=== PATIENT | female | born 1950 | race African-American/Black ===

== ENCOUNTER → 2016-04-20 | Outpatient (CLI) | payer MEDICARE, OTHER ==
[2014-11-22 06:04] VITALS: BP 124/67
[~2016-04-20] MED LIST: ACET500T33 PO; AMLO5TAB2 PO; AMLO5TAB4 PO; ASPI81TA44 PO; CELE100C PO; FERR-26 PO; HYDR-2666 PO; OXYC-323 PO; Oxycodone Hcl/Acetaminophen PO; PRAV40TA2 PO; PROM25TA10 PO; TRIA1CAP3 PO; WARF1TAB PO; Warfarin Sodium MC
--- NOTE | 2016-04-21 14:53 | RAD ---
EXAM: DIGITAL SCREEN BILAT W/CAD HISTORY: Routine Screening. COMPARISON: 08/23/2014 Standard mammographic views are obtained of the bilateral breasts. This study was interpreted with the benefit of Computerized Aided Detection (CAD). FINDINGS: The breast parenchyma is primarily fatty replaced. Breast parenchyma level density 1.. There is no definite new suspicious spiculated mass or worrisome new cluster of microcalcifications. Repeat demonstration of a well-circumscribed nodule in the right upper outer breast. Most likely cause is a lymph node or cyst. IMPRESSION: No definite new suspicious mass. BI-RADS CATEGORY: 2 BENIGN FINDING RECOMMENDED FOLLOW-UP: 12M 12 MONTH FOLLOW-UP PQRS compliance statement: Patient information was entered into a reminder system with a target due date for the next mammogram. Mammography is a sensitive method for finding small breast cancers, but it does not detect them all and is not a substitute for careful clinical examination. A negative mammogram does not negate a clinically suspicious finding and should not result in delay in biopsying a clinically suspicious abnormality. "Our facility is accredited by the [employer] Mammography Program."
== END | disposition home or self-care (01) ==
LOC: MAMMO 10:59
PROVIDERS: ATTEND Family Medicine
DX: Z12.31 Encounter for screening mammogram for malignant neoplasm of breast (principal)
CPT/HCPCS: G0202; 77067

== ENCOUNTER 2017-04-07 14:34 | Emergency (ER) | payer MEDICARE, OTHER ==
[2017-04-07 16:10] LABS: ADD MAN DIFF? NO
[2017-04-07 16:17] LABS: BASO # 0.1 x10^3/uL (0.0-0.2); BASO % 1 % (0-3); EOS # 0.2 x10^3/uL (0.0-0.7); EOS % 2 % (0-3); HEMATOCRIT 41.9 % (36.0-47.0); HEMOGLOBIN 13.8 g/dL (12.0-15.5); LYMPH # 2.5 x10^3/uL (1.0-4.8); LYMPH % 29 % (24-48); MEAN CORPUSCULAR HEMOGLOBIN 28 pg (25-35); MEAN CORPUSCULAR HGB CONC 33 g/dL (31-37); MEAN CORPUSCULAR VOLUME 84 fL (79-100); MONO # 0.9 x10^3/uL (0.0-1.1); MONO % 10 % (0-9); NEUT % 58 % (31-73); PLATELET COUNT 343 x10^3/uL (140-400); RED BLOOD COUNT 4.97 x10^6/uL (3.50-5.40); RED CELL DISTRIBUTION WIDTH 13.8 % (11.5-14.5); WHITE BLOOD COUNT 8.7 x10^3/uL (4.0-11.0)
[2017-04-07] MEDS: IPRATRPIUM/ALBUTEROL 0.5/2.5MG 3 ML NEBU. NEB ×2 (16:22)
[2017-04-07 16:25] LABS: ANION GAP 9 (6-14); BLOOD UREA NITROGEN 18 mg/dL (7-20); CALCIUM 9.5 mg/dL (8.5-10.1); CARBON DIOXIDE 27 mmol/L (21-32); CHLORIDE 103 mmol/L (98-107); CREATININE 1.1 mg/dL (0.6-1.0); GFR 60.5; GLUCOSE 120 mg/dL (70-99); POTASSIUM 3.6 mmol/L (3.5-5.1); SODIUM 139 mmol/L (136-145)
[2017-04-07] MEDS: methylPREDNISolone SOD SUCC PF 125 MG/2 ML VIAL. IV ×2 (16:33)
[2017-04-07 16:35] LABS: TROPONINI < 0.017 ng/mL (0.000-0.055)
[2017-04-07 16:38] LABS: NT-PRO BNP 39 pg/mL (0-124)
[2017-04-07] MEDS: IOHEXOL 300 MG/ML 100ML VIAL. IV ×2 (16:42)
[2017-04-07] MEDS ORDERED: CONTRAST GIVEN MC ×2 (16:45)
[2017-04-07 16:51] LABS: D-DIMER 0.94 ug/mlFEU (0.00-0.50)
[2017-04-07 16:53] LABS: INFLUENZA A PATIENT NEGATIVE (NEGATIVE); INFLUENZA B PATIENT NEGATIVE (NEGATIVE); OBC FLU VALID
[2017-04-07] MEDS: MORPHINE SULFATE 4 MG/ML DISP.SYRIN. IV ×2 (17:20)
== END 2017-04-07 18:45 | disposition home or self-care (01) ==
LOC: ER 14:34
DX: J45.901 Unspecified asthma with (acute) exacerbation (principal); R07.89 Other chest pain; E78.00 Pure hypercholesterolemia, unspecified; I10 Essential (primary) hypertension
CPT/HCPCS: 36415; 71275; 80048; 83880; 84484; 85025; 85379; 87804; 87804-59; 93005; 94640; 96374; 96375; 99285-25; J2270; J2930; J7620; Q9967

== ENCOUNTER → 2017-05-11 | Day surgery (SDC) | payer MEDICARE, OTHER ==
[~2017-05-11] MED LIST changes: -ACET500T33 PO; -AMLO5TAB2 PO; -AMLO5TAB4 PO; -ASPI81TA44 PO; -CELE100C PO; -FERR-26 PO; -HYDR-2666 PO; +LIDOCAINE 2% PF Vial for OR 5 ML VIAL.; -OXYC-323 PO; -Oxycodone Hcl/Acetaminophen PO; -PRAV40TA2 PO; -PROM25TA10 PO; +PROPOFOL 40 ML IV; -TRIA1CAP3 PO; -WARF1TAB PO; -Warfarin Sodium MC
[2017-05-11] MEDS: IV RINGERS,LACTATED 1000ML 1,000 ML IV (07:22)
== END | disposition home or self-care (01) ==
LOC: ENDOS 06:47
DX: Z12.11 Encounter for screening for malignant neoplasm of colon (principal); K57.30 Diverticulosis of large intestine without perforation or abscess without bleeding; I10 Essential (primary) hypertension; K21.9 Gastro-esophageal reflux disease without esophagitis; E78.5 Hyperlipidemia, unspecified; J45.909 Unspecified asthma, uncomplicated; M19.90 Unspecified osteoarthritis, unspecified site; Z96.659 Presence of unspecified artificial knee joint
CPT/HCPCS: G0121; J2704

== ENCOUNTER 2018-05-23 18:27 | Inpatient (IN) | payer OTHER ==
[~2018-05-23] VITALS: Ht 152.4 cm; Wt 101.7 kg
[~2018-05-23 18:27] MED LIST changes: +ACET500T33 PO; +ALBU2.5V8 INH; +AMLO5TAB10 PO; +AMLO5TAB4 PO; +ASPI81TA59 PO; +CELE100C PO; +FERR325T14 PO; +HYDR-2761 PO; +HYDR-3164 PO; -LIDOCAINE 2% PF Vial for OR 5 ML VIAL.; +OXYC1TAB15 PO; +Oxycodone Hcl/Acetaminophen PO; +PRAV40TA2 PO; +PROM25TA10 PO; -PROPOFOL 40 ML IV; +TRIA1CAP3 PO; +WARF1TAB74 PO; +Warfarin Sodium MC
[2018-05-23] MEDS ORDERED: DEXAMETHASONE SOD PHOS 20 MG/5 ML VIAL. IV ONE (18:45)
[2018-05-23] MEDS ORDERED: ONDANSETRON PF 4 MG/2 ML VIAL. IV ONE (18:45)
[2018-05-23] MEDS ORDERED: ALBUTEROL SULFATE 2.5 MG/3 ML NEBU. NEB ONE (18:45)
[2018-05-23 19:25] LABS: BASO # 0.1 x10^3/uL (0.0-0.2); BASO % 1 % (0-3); EOS # 0.1 x10^3/uL (0.0-0.7); EOS % 1 % (0-3); HEMATOCRIT 42.9 % (36.0-47.0); HEMOGLOBIN 14.2 g/dL (12.0-15.5); LYMPH % 19 % (24-48); MEAN CORPUSCULAR HEMOGLOBIN 28 pg (25-35); MEAN CORPUSCULAR HGB CONC 33 g/dL (31-37); MEAN CORPUSCULAR VOLUME 84 fL (79-100); MONO # 0.5 x10^3/uL (0.0-1.1); MONO % 5 % (0-9); NEUT # 7.7 x10^3uL (1.8-7.7); NEUT % 75 % (31-73); PLATELET COUNT 317 x10^3/uL (140-400); RED BLOOD COUNT 5.13 x10^6/uL (3.50-5.40); RED CELL DISTRIBUTION WIDTH 13.5 % (11.5-14.5); WHITE BLOOD COUNT 10.3 x10^3/uL (4.0-11.0)
[2018-05-23] MEDS ORDERED: IV NORMAL SALINE 1000ML BAG 1,000 ML IV ONE (19:30)
[2018-05-23] MEDS ORDERED: MORPHINE SULFATE 4 MG/ML VIAL. IV ONE (19:30)
[2018-05-23] MEDS ORDERED: ACETAMINOPHEN 500 MG TABLET PO ONE (19:30)
[2018-05-23 19:32] LABS: CALCIUM 9.2 mg/dL (8.5-10.1); CREATININE 1.1 mg/dL (0.6-1.0); GFR 60.3; POTASSIUM 3.7 mmol/L (3.5-5.1)
[2018-05-23 19:39] LABS: ALBUMIN 3.5 g/dL (3.4-5.0); ALBUMIN/GLOBULIN RATIO 0.6 (1.0-1.7); TOTAL BILIRUBIN 0.6 mg/dL (0.2-1.0)
[2018-05-23 20:25] LABS: INFLUENZA A PATIENT NEGATIVE (NEGATIVE); INFLUENZA B PATIENT NEGATIVE (NEGATIVE)
--- NOTE | 2018-05-23 21:12 | PHYS DOC ---
Past Medical History Past Medical History: Asthma, High Cholesterol, Hypertension (EMMANUEL SOARES APRN) Past Surgical History: Knee Replacement Additional Past Surgical Histo: bilat knee, L carpal tunnel (EMMANUEL SOARES APRN) Alcohol Use: None Drug Use: None (EMMANUEL SOARES APRN) Adult General Chief Complaint Chief Complaint: SHORTNESS OF BREATH HPI HPI Patient is a 67 year old AA female who presents to the emergency Department today via EMS with complaints of shortness of breath since last . Patient reports having a history of asthma. At this time she complains of chest discomfort described as tightness, she denies palpiations. EMS gave patient a breathing treatment in route to the emergency department that did help improve her breathing somewhat per patient. Patient reports a fever, fatigue, increased shortness of breath with exertion, and nonproductive cough that has gradually gotten worse over the last 4 days. She currently rates the pain a 10 out of 10 on the pain scale, she reports that using her inhaler at home and taking the nebulizer treatment from EMS provided little to no relief of her symptoms. (EMMANUEL SOARES APRN) Review of Systems Review of Systems Constitutional: Reports fever and chills Eyes: Denies changes HENT: Denies nasal congestion or sore throat [] Respiratory: See history of present illness Cardiovascular: No additional information not addressed in HPI [] GI: Denies abdominal pain, nausea, vomiting, or diarrhea [] Musculoskeletal: Reports body aches Integument: Denies rash or skin lesions [] Neurologic: Denies headache Complete systems were reviewed and found to be within normal limits, except as documented in this note. (EMMANUEL SOARES APRN) Current Medications Current Medications Current Medications Medications (Trade) Dose Ordered Sig/[place] Start Time Stop Time Status Last Admin Dose Admin Acetaminophen (Tylenol) 1,000 mg 1X ONCE 05/23/18 19:30 05/23/18 19:32 DC 05/23/18 19:39 1,000 MG Albuterol Sulfate (Ventolin Neb Soln) 2.5 mg 1X ONCE 05/23/18 18:45 05/23/18 18:46 DC 05/23/18 19:14 2.5 MG Dexamethasone Sodium Phosphate (Decadron) 10 mg 1X ONCE 05/23/18 18:45 05/23/18 18:46 DC 05/23/18 19:32 10 MG Morphine Sulfate (Morphine Sulfate) 4 mg 1X ONCE 05/23/18 19:30 05/23/18 19:32 DC 05/23/18 19:43 4 MG Ondansetron HCl (Zofran) 4 mg 1X ONCE 05/23/18 18:45 05/23/18 18:46 DC 05/23/18 19:32 4 MG Sodium Chloride 1,000 ml @ 1,000 mls/hr 1X ONCE 05/23/18 19:30 05/23/18 20:29 DC 05/23/18 19:45 1,000 MLS/HR (CHERYL PATRICK MD) Allergies Allergies Allergies Coded Allergies Type Severity Reaction Last Updated Verified No Known Drug Allergies 05/11/17 No (CHERYL PATRICK MD) Physical Exam Physical Exam Constitutional: Well developed, well nourished, no acute distress, ill appearance. [] HENT: Normocephalic, atraumatic, bilateral external ears normal, oropharynx moist, nose normal. [] Eyes: conjunctiva normal, no discharge. [] Neck: Normal range of motion, no stridor. [] Cardiovascular:Heart rate regular rhythm, no murmur [] Lungs & Thorax: Bilateral breath sounds coarse throughout, with inspiratory and expiratory wheezes, diminshed in bases bilat, crackles noted in RLL, speaking 4-5 words at a time, mild retractions, moderate respiratory distress Abdomen: soft, no tenderness, Skin: Warm, dry, no erythema, no rash. [] Extremities: No cyanosis, no clubbing, ROM intact, no edema. [] Neurologic: Alert and oriented X 3, no focal deficits noted. [] Psychologic: Affect normal, judgement normal, mood normal. [] (EMMANUEL SOARES APRN) Current Patient Data Vital Signs Vital Signs Date Time Temp Pulse Resp B/P (MAP) Pulse Ox O2 Delivery O2 Flow Rate FiO2 05/23/18 20:00 100 18 186/96 (126) 97 Nasal Cannula 2.0 05/23/18 18:49 101.9 101.9 (CHERYL PATRICK MD) Lab Values Laboratory Tests Test 05/23/18 19:13 05/23/18 19:40 05/23/18 19:53 White Blood Count 10.3 x10^3/uL (4.0-11.0) Red Blood Count 5.13 x10^6/uL (3.50-5.40) Hemoglobin 14.2 g/dL (12.0-15.5) Hematocrit 42.9 % (36.0-47.0) Mean Corpuscular Volume 84 fL (79-100) Mean Corpuscular Hemoglobin 28 pg (25-35) Mean Corpuscular Hemoglobin Concent 33 g/dL (31-37) Red Cell Distribution Width 13.5 % (11.5-14.5) Platelet Count 317 x10^3/uL (140-400) Neutrophils (%) (Auto) 75 % (31-73) H Lymphocytes (%) (Auto) 19 % (24-48) L Monocytes (%) (Auto) 5 % (0-9) Eosinophils (%) (Auto) 1 % (0-3) Basophils (%) (Auto) 1 % (0-3) Neutrophils # (Auto) 7.7 x10^3uL (1.8-7.7) Lymphocytes # (Auto) 2.0 x10^3/uL (1.0-4.8) Monocytes # (Auto) 0.5 x10^3/uL (0.0-1.1) Eosinophils # (Auto) 0.1 x10^3/uL (0.0-0.7) Basophils # (Auto) 0.1 x10^3/uL (0.0-0.2) Sodium Level 137 mmol/L (136-145) Potassium Level 3.7 mmol/L (3.5-5.1) Chloride Level 101 mmol/L (98-107) Carbon Dioxide Level 26 mmol/L (21-32) Anion Gap 10 (6-14) Blood Urea Nitrogen 11 mg/dL (7-20) Creatinine 1.1 mg/dL (0.6-1.0) H Estimated GFR (Cockcroft-Gault) 60.3 BUN/Creatinine Ratio 10 (6-20) Glucose Level 115 mg/dL (70-99) H Calcium Level 9.2 mg/dL (8.5-10.1) Total Bilirubin 0.6 mg/dL (0.2-1.0) Aspartate Amino Transferase (AST) 18 U/L (15-37) Alanine Aminotransferase (ALT) 23 U/L (14-59) Alkaline Phosphatase 113 U/L (46-116) DM-Trz-S-Type Natriuretic Peptide 70 pg/mL (0-124) Total Protein 9.0 g/dL (6.4-8.2) H Albumin 3.5 g/dL (3.4-5.0) Albumin/Globulin Ratio 0.6 (1.0-1.7) L Lactic Acid Level 1.3 mmol/L (0.4-2.0) Influenza Type A Antigen Negative (NEGATIVE) Influenza Type B Antigen Negative (NEGATIVE) Laboratory Tests 05/23/18 19:13 Laboratory Tests 05/23/18 19:13 Microbiology 05/23/18 Blood Culture - Final, Complete NO GROWTH AFTER 5 DAYS (CHERYL PATRICK MD) EKG EKG 1857- sinus tachycardia, no STEMI, read by Dr. Cantu. [] (EMMANUEL SOARES APRN) Radiology/Procedures Radiology/Procedures RLL infiltrate read by Dr. Patrick[] (EMMANUEL SOARES APRN) Course & Med Decision Making Course & Med Decision Making Pertinent Labs and Imaging studies reviewed. (See chart for details) Dx: RLL CAP CXR revealed RLL pneumonia. EKG sinus tachycardia. VSS, Pt was given 1L NS, 1 gm of tylenol, 10 mg of decadron IV, 8 mg of zofran, 8 mg of morphine, and an albuterol neb tx in the ER. She reported feeling better after interventions. Influenza testing was negative. CBC unremarkable, lactic acid 1.3, blood cx pending [address] Gross who will admit patient for RLL community acquired pneumonia. 500 mg of zithromax IV and 1 gm of rocephin IV ordered, per Dr. Gross. (EMMANUEL SOARES APRN) Course & Med Decision Making Staff Physician Addendum: I was working in the ER during the course of this patient's visit. I was available for consultation as needed, but I was not directly involved in the care of this patient. (CHERYL PATRICK MD) Dragon Disclaimer Dragon Disclaimer This electronic medical record was generated, in whole or in part, using a voice recognition dictation system. (EMMANUEL SOARES APRN) Departure Departure Impression: Primary Impression: CAP (community acquired pneumonia) Disposition: ADMITTED INPATIENT Admitting Physician: Bertha Gross (EMMANUEL SOARES APRN) Condition: STABLE Referrals: LIZETT CRUZ (PCP) Scripts Prednisone (PREDNISONE) 50 Mg Tablet 50 MG PO DAILY for lung for 3 Days, #3 TAB Prov: BERTHA GROSS MD 05/25/18 Azithromycin (ZITHROMAX) 250 Mg Tablet 250 MG PO DAILY for ANTI-BIOTIC for 3 Days, #3 TAB 0 Refills Prov: BETRHA GROSS MD 05/25/18 Problem Qualifiers Primary Impression: CAP (community acquired pneumonia) Laterality: right Lung location: lower lobe of lung Qualified Codes: J18.1 - Lobar pneumonia, unspecified organism EMMANUEL SOARES APRN May 23, 2018 21:11 CHERYL PATRICK MD May 29, 2018 06:00
[2018-05-23] MEDS ORDERED: cefTRIAXone IV Push 1 GM VIAL. IVP ONE (21:30)
[2018-05-23] MEDS ORDERED: AZITHRMYCN 500MG IVPB FOR OMNI 250 ML IV ONE (21:30)
[2018-05-23 23:00] VITALS: BP 150/98
--- NOTE | 2018-05-23 23:00 | NUR ---
ADMISSION NOTE: Patient arrived to room 588 via wheelchair. Patient able to transfer self to bed without any visible difficulty. Patient complains of hunger at this time. Box lunch provided. Bed low, locked, call light within reach. Will complete admission questionnaire.
--- NOTE | 2018-05-24 01:49 | EKG ---
[facility] [address] [place] [address] Test Date: 2018-05-23 Test Time: 18:57:15 Pat Name: ISABEL DE LOS SANTOS Department: Room: 588 1 Gender: F Vaccine Manager: : 1950 Requested By: EMMANUEL SOARES Order Number: [id number] Reading MD: Morro Pimentel MD Measurements Intervals Phyllis Rate: 109 P: 34 TX: 132 QRS: -3 QRSD: 86 T: 71 QT: 318 QTc: 429 Interpretive Statements SINUS TACHYCARDIA LEFTWARD AXIS LVH Electronically Signed On 05-27-2018 16:02:30 CDT by Morro Pimentel MD
[2018-05-24 03:00] VITALS: BP 140/86
--- NOTE | 2018-05-24 06:45 | NUR ---
Patient complaining of headache and requesting her blood pressure medication. Dr. Grey paged at approximately 0615. No return call received at this time. Informed patient of this and passed along to day RN.
[2018-05-24 07:00] VITALS: BP 151/87
[2018-05-24] MEDS ORDERED: ACETAMINOPHEN 325 MG TABLET. PO PRN (07:30)
--- NOTE | 2018-05-24 07:42 | RAD ---
CHEST PA LATERAL CLINICAL INDICATION: congestion COMPARISON: None FINDINGS: Heart is normal in size. Bilateral interstitial opacities are seen especially in the lower lung zones. No focal consolidation. No pneumothorax or pleural effusion. Visualized bony thorax is within normal limits. Focal eventration of right hemidiaphragm. IMPRESSION: Findings suggests atypical/viral infection. Electronically signed by: Rex Mckeon DO (05/24/2018 7:39 AM) [facility]
[2018-05-24] MEDS ORDERED: ALBUTEROL SULFATE 2.5 MG/3 ML NEBU. INH PRN (07:45)
[2018-05-24] MEDS ORDERED: HYDROcodone/APAP 5/325MG 1 TAB TABLET PO PRN (07:45)
[2018-05-24] MEDS: amLODIPine BESYLATE 5 MG TABLET PO SCH (07:59)
[2018-05-24] MEDS: FERROUS SULFATE 325 MG TABLET. PO SCH ×3 (07:59→17:53)
--- NOTE | 2018-05-24 10:28 | PDOC ---
Provider Note Provider Note Pt seen.H&P dictated.#[id number] BERNARD GROSS MD May 24, 2018 10:28
--- NOTE | 2018-05-24 10:40 | HP ---
ADMIT DATE: 05/23/2018 LOCATION: 8. REASON FOR ADMISSION TO THE HOSPITAL: Community-acquired pneumonia. HISTORY OF PRESENT ILLNESS: The patient is a 68-year-old female with history of asthma, hypertension, and hyperlipidemia. She was having cough with shortness of breath for last 4 days, it got to a point where she came to the Emergency Room, she was wheezing, was given breathing treatment, IV Solu-Medrol. Chest x-ray shows some faint infiltrates and the patient had influenza test, it was negative, was admitted to the hospital for possible viral pneumonitis versus atypical pneumonia. PAST MEDICAL HISTORY: History of asthma, hypertension, hyperlipidemia. PAST SURGICAL HISTORY: Knee replacement, carpal tunnel. ALLERGIES: No known drug allergies. MEDICATIONS AT HOME: Albuterol inhaler, amlodipine 5 mg daily, iron 3 times a day, hydrocodone for pain 5/325 q.6, pravastatin 40 mg daily. PERSONAL HISTORY: Denies smoking, alcohol, drug abuse. FAMILY HISTORY: Positive for hypertension. REVIEW OF SYMPTOMS: CONSTITUTIONAL: Denies any fever or body ache. Complains of cough and wheezing with some shortness of breath. GASTROINTESTINAL: No nausea or vomiting. Rest of the 14 systems was reviewed and negative. PHYSICAL EXAMINATION: GENERAL: The patient is comfortable now. VITAL SIGNS: She had a temperature 101.9, pulse 110, respirations 24, blood pressure 170/106, 93 on room air. HEENT: Head is atraumatic. Eyes: Pupils are equal. Oral cavity, slight congestion. NECK: Supple. Thyroid not enlarged. JVD not elevated. CHEST: Symmetrical. CARDIOVASCULAR: S1, S2. LUNGS: Clear to auscultation, occasional wheezing. ABDOMEN: Soft, bowel sounds present, no mass palpable. EXTERNAL GENITALIA: No Vincent. RECTAL: Deferred. EXTREMITIES: No calf tenderness, no edema. NEUROLOGIC: Moving all extremities. No focal deficits noted. LABORATORY DATA: Shows a white count of 10, hemoglobin 14, platelets 317. Electrolytes, sodium 137, potassium 3.7, chloride 101, bicarbonate 26, creatinine 1.1, glucose 115. Lactic acid 1.3. LFTs were normal. Influenza A and B was negative. Chest x-ray, some faint infiltrates. EKG done, report is pending. FINAL IMPRESSION: 1. Community-acquired pneumonia. 2. Atypical pneumonia versus viral pneumonitis. 3. Hypertension. 4. History of asthma. PLAN: At this time, was to admit to hospital. Start on Rocephin and Zithromax, IV Solu-Medrol, oxygen, breathing treatments and see how she improves in the next 24-48 hours. BERNARD GROSS MD DR: HERNANDEZ/sterling JOB#: [id number] / [id number] LIZETT Parsons
[2018-05-24 10:43] VITALS: BP 151/45
[2018-05-24] MEDS ORDERED: IPRATRPIUM/ALBUTEROL 0.5/2.5MG 3 ML NEBU. NEB ONE (11:00)
--- NOTE | 2018-05-24 12:00 | NUR ---
SW following for discharge planning. Disucssed with RN, pt is from home. RN advised no SW needs at this time.
[2018-05-24] MEDS: predniSONE 20 MG TABLET PO SCH (12:34)
[2018-05-24 14:59] LABS: MYCOPLASMA PATIENT NEGATIVE (NEGATIVE)
[2018-05-24 15:00] VITALS: BP 194/94
[2018-05-24] MEDS: IPRATRPIUM/ALBUTEROL 0.5/2.5MG 3 ML NEBU. NEB SCH ×2 (16:43→20:00)
[2018-05-24 19:00] VITALS: BP 141/73
[2018-05-24] MEDS: LACTOBACILLUS RHAMNOSUS GG 1 CAPSULE. PO SCH (20:30)
[2018-05-24] MEDS ORDERED: ATORVASTATIN CALCIUM 10 MG TABLET. PO SCH (21:00)
[2018-05-24] MEDS ORDERED: AZITHROMYCIN 500 MG in IV NORMAL SALINE 250ML 250 ML IV SCH (21:00)
[2018-05-24] MEDS ORDERED: cefTRIAXone IV Push 1 GM VIAL. IVP SCH (21:00)
[2018-05-24 23:00] VITALS: BP 151/86
[2018-05-25 03:00] VITALS: BP 158/87
[2018-05-25 04:27] LABS: BASO # 0.1 x10^3/uL (0.0-0.2); BASO % 0 % (0-3); EOS % 0 % (0-3); HEMATOCRIT 40.2 % (36.0-47.0); HEMOGLOBIN 13.2 g/dL (12.0-15.5); LYMPH # 1.9 x10^3/uL (1.0-4.8); LYMPH % 14 % (24-48); MEAN CORPUSCULAR HEMOGLOBIN 28 pg (25-35); MEAN CORPUSCULAR HGB CONC 33 g/dL (31-37); MEAN CORPUSCULAR VOLUME 85 fL (79-100); MONO # 0.6 x10^3/uL (0.0-1.1); MONO % 5 % (0-9); NEUT # 11.6 x10^3uL (1.8-7.7); NEUT % 82 % (31-73); PLATELET COUNT 305 x10^3/uL (140-400); RED BLOOD COUNT 4.76 x10^6/uL (3.50-5.40); RED CELL DISTRIBUTION WIDTH 13.6 % (11.5-14.5); WHITE BLOOD COUNT 14.3 x10^3/uL (4.0-11.0)
[2018-05-25 04:44] LABS: CALCIUM 8.7 mg/dL (8.5-10.1); CREATININE 0.9 mg/dL (0.6-1.0); GFR 75.8; POTASSIUM 4.2 mmol/L (3.5-5.1)
[2018-05-25 07:00] VITALS: BP 126/72
[2018-05-25] MEDS: IPRATRPIUM/ALBUTEROL 0.5/2.5MG 3 ML NEBU. NEB SCH ×2 (07:39→11:18)
--- NOTE | 2018-05-25 08:21 | RAD ---
CHEST PA LATERAL CLINICAL INDICATION: PNEUMONIA F/U COMPARISON: 05/23/2018 FINDINGS: Heart is normal in size. Lungs are clear. No pneumothorax or pleural effusion. Visualized bony thorax is within normal limits. IMPRESSION: No acute pulmonary process. Electronically signed by: Rex Mckeon DO (05/25/2018 8:16 AM) [facility]
[2018-05-25] MEDS: FERROUS SULFATE 325 MG TABLET. PO SCH (09:27)
[2018-05-25] MEDS: LACTOBACILLUS RHAMNOSUS GG 1 CAPSULE. PO SCH (09:27)
[2018-05-25] MEDS: predniSONE 20 MG TABLET PO SCH (09:30)
[2018-05-25] MEDS: amLODIPine BESYLATE 5 MG TABLET PO SCH (09:30)
--- NOTE | 2018-05-25 09:44 | PDOC ---
PROGRESS NOTES Subjective Subjective feels better today ,want to go home Objective Objective Vital Signs Date Time Temp Pulse Resp B/P (MAP) Pulse Ox O2 Delivery O2 Flow Rate FiO2 05/25/18 09:30 73 126/72 05/25/18 08:18 Room Air 05/25/18 07:39 97 05/25/18 07:00 98.7 18 98.7 05/24/18 15:00 2.0 Intake and Output 05/25/18 07:00 Intake Total 420 ml Balance 420 ml Intake Oral 420 ml # Voids 4 Physical Exam Abdomen: Normal bowel sounds, Soft Heart: Regular rate, Normal S1 Extremities: No clubbing General: Alert, Oriented X3 HEENT: Atraumatic Lungs: Clear to auscultation MUSCULOSKELETAL: No deformity Neck: No JVD Neuro: Normal speech Psych/Mental Status: Mental status NL Skin: No breakdown Diagnosis Problem List Problems Medical Problems: (1) CAP (community acquired pneumonia) Status: Acute Assessment Assessment Problems Medical Problems: (1) CAP (community acquired pneumonia) Status: Acute FINAL IMPRESSION: 1. Community-acquired pneumonia.?Viral pneumonitis 2. Atypical pneumonia versus viral pneumonitis. 3. Hypertension. 4. History of asthma. PLAN: clinically improved cxr clear wbc 14 due to steroids c/s neg,flue test -ve mycoplasme and legionella neg. d/c home on prednisone+zithromax. f/u pcp in 1 week. Plan Plan of Care Problems Medical Problems: (1) CAP (community acquired pneumonia) Status: Acute Comment Review of Relevant I have reviewed the following items michelle (where applicable) has been applied. Labs Laboratory Tests Test 05/24/18 11:20 05/24/18 15:30 05/25/18 03:35 Mycoplasma Serology (LAB) Negative (NEGATIVE) Group A Streptococcus Rapid Negative (NEGATIVE) White Blood Count 14.3 x10^3/uL (4.0-11.0) Red Blood Count 4.76 x10^6/uL (3.50-5.40) Hemoglobin 13.2 g/dL (12.0-15.5) Hematocrit 40.2 % (36.0-47.0) Mean Corpuscular Volume 85 fL (79-100) Mean Corpuscular Hemoglobin 28 pg (25-35) Mean Corpuscular Hemoglobin Concent 33 g/dL (31-37) Red Cell Distribution Width 13.6 % (11.5-14.5) Platelet Count 305 x10^3/uL (140-400) Neutrophils (%) (Auto) 82 % (31-73) Lymphocytes (%) (Auto) 14 % (24-48) Monocytes (%) (Auto) 5 % (0-9) Eosinophils (%) (Auto) 0 % (0-3) Basophils (%) (Auto) 0 % (0-3) Neutrophils # (Auto) 11.6 x10^3uL (1.8-7.7) Lymphocytes # (Auto) 1.9 x10^3/uL (1.0-4.8) Monocytes # (Auto) 0.6 x10^3/uL (0.0-1.1) Eosinophils # (Auto) 0.0 x10^3/uL (0.0-0.7) Basophils # (Auto) 0.1 x10^3/uL (0.0-0.2) Sodium Level 140 mmol/L (136-145) Potassium Level 4.2 mmol/L (3.5-5.1) Chloride Level 104 mmol/L (98-107) Carbon Dioxide Level 25 mmol/L (21-32) Anion Gap 11 (6-14) Blood Urea Nitrogen 15 mg/dL (7-20) Creatinine 0.9 mg/dL (0.6-1.0) Estimated GFR (Cockcroft-Gault) 75.8 Glucose Level 111 mg/dL (70-99) Calcium Level 8.7 mg/dL (8.5-10.1) Microbiology 05/23/18 Blood Culture - Preliminary, Resulted NO GROWTH AFTER 1 DAY Medications Current Medications Albuterol/ Ipratropium (Duoneb) 3 ml 1X ONCE NEB Last administered on at 11:50; Start 05/24/18 at 11:00; Stop 05/24/18 at 11:01; Status DC Albuterol/ Ipratropium (Duoneb) 3 ml RTQID NEB Last administered on 05/25/18at 07:39; Start 05/24/18 at 16:00 Atorvastatin Calcium (Lipitor) 10 mg QHS PO Last administered on 05/24/18at 20: 30; Start 05/24/18 at 21:00 Azithromycin 500 mg/Sodium Chloride 250 ml @ 250 mls/hr Q24H IV Last administered on 05/24/18 20:31; Start 05/24/18 at 21:00 Ceftriaxone Sodium (Rocephin) 1 gm Q24H IVP Last administered on 05/24/18at 20: 30; Start 05/24/18 at 21:00 Lactobacillus Rhamnosus (Culturelle) 1 cap BID PO Last administered on 09:27; Start 05/24/18 at 21:00 Prednisone (Prednisone) 50 mg DAILY PO Last administered on 05/25/18 09:30; Start 05/24/18 at 11:00 Vitals/I & O Vital Sign - Last 24 Hours 05/24/18 05/24/18 05/24/18 05/24/18 10:43 11:50 15:00 16:43 Temp 98.1 97.6 98.1 97.6 Pulse 85 89 Resp 18 17 B/P (MAP) 151/45 (80) 194/94 (127) Pulse Ox 95 94 98 96 O2 Delivery Nasal Cannula Room Air Nasal Cannula Room Air O2 Flow Rate 2.0 2.0 05/24/18 05/24/18 05/24/18 05/25/18 19:00 20:00 23:00 03:00 Temp 98.8 99.2 98.9 98.8 99.2 98.9 Pulse 98 91 79 Resp 20 20 18 B/P (MAP) 141/73 (95) 151/86 (107) 158/87 (110) Pulse Ox 94 97 96 O2 Delivery Room Air 05/25/18 05/25/18 05/25/18 05/25/18 07:00 07:39 08:18 09:30 Temp 98.7 98.7 Pulse 73 73 Resp 18 B/P (MAP) 126/72 (90) 126/72 Pulse Ox 98 97 O2 Delivery Room Air Room Air Room Air Intake and Output 05/24/18 05/24/18 05/25/18 15:00 23:00 07:00 Intake Total 300 ml 120 ml Balance 300 ml 120 ml BERNARD GROSS MD May 25, 2018 09:44
[2018-05-25] MEDS ORDERED: PRED50TA PO (10:25)
[2018-05-25] MEDS ORDERED: AZIT250T PO (10:25)
[2018-05-25 11:00] VITALS: BP 126/72
--- NOTE | 2018-05-25 11:03 | NUR ---
Scripts for zithromax 250mg PO q day x 3 days and prednisone 50mg PO q day x3 days called in to [facility] pharmacy at [address] [place] [address] Ave [phone].
--- NOTE | 2018-05-25 11:33 | NUR ---
SW following. Discussed with RN, pt had chest x-ray today. RN advised no SW needs, and anticipates pt will discharge home today.
--- NOTE | 2018-05-25 12:30 | NUR ---
Discharge Note: ISABEL DE LOS SANTOS Discharge instructions and discharge home medications reviewed with Patient and a copy given. All questions have been answered and understanding verbalized. The following instructions and handouts were given: Pneumonia Discontinued lines and drains: R and L peripheral IV lines discontinued, no bleeding or bruising, catheter tips intact. Patient discharged to home for self-care, outpatient follow up.
--- NOTE | 2018-05-31 21:49 | PDOC ---
Provider Note Provider Note Discharge summary dictated.#[id number]. BERNARD GROSS MD May 31, 2018 21:49
--- NOTE | 2018-06-01 00:50 | DS ---
DATE OF DISCHARGE: 05/25/2018 REASON FOR ADMISSION TO THE HOSPITAL: Community-acquired pneumonia. CONSULTATIONS: None. PROCEDURES: None. HOSPITAL COURSE: The patient is a 68-year-old female, with history of asthma, was having cough, congestion and sputum. X-ray initially showed infiltrate in the lung, was admitted with diagnosis of acute bronchopneumonia. The patient did improve within 24-48 hours. Repeat chest x-ray shows improvement and the patient was discharged. FINAL DIAGNOSES: 1. Possible bronchopneumonia. 2. Asthma. DISPOSITION: Home. Zithromax, prednisone and breathing treatments. Legionella, Mycoplasma was negative. Strep was negative. Influenza was negative. Repeat chest x-ray was negative. BERNARD GROSS MD DR: HERNANDEZ/nts JOB#: [id number] / [id number] LIZETT Parsons
== END 2018-05-25 12:30 | disposition home or self-care (01) | DRG 195 ==
LOC: ER 18:27 → 5 SOUTH 21:08
PROVIDERS: ADMIT Internal Medicine; ATTEND Internal Medicine
DX: J12.9 Viral pneumonia, unspecified (principal); I10 Essential (primary) hypertension; E78.00 Pure hypercholesterolemia, unspecified; E78.5 Hyperlipidemia, unspecified; Z96.659 Presence of unspecified artificial knee joint; J45.909 Unspecified asthma, uncomplicated; Z82.49 Family history of ischemic heart disease and other diseases of the circulatory system
CPT/HCPCS: 36415; 71046; 80048; 80053; 83605; 83880; 85025; 86713; 86738; 87040; 87070; 87804; 87880; 93005; 94640; 94760; 96361; 96366; 96374; 96375; J0456; J0696; J1100; J2270; J2405; J7030; J7050; J7512; J7613; J7620; 99285-25

== ENCOUNTER → 2018-08-08 | Outpatient (CLI) | payer OTHER ==
[~2018-08-08] MED LIST changes: +AZIT250T PO; +PRED50TA PO
--- NOTE | 2018-08-08 16:17 | RAD ---
EXAM: LUMBAR SPINE 3 VIEWS. HISTORY: Low back pain, sciatica COMPARISON: None. FINDINGS: There is grade 1 anterolisthesis at L4-5. Facet osteoarthritis appears moderate from L3 through S1. Vertebral body heights are maintained, and no fractures are identified. Degenerative disc disease is mild from L4 through S1. IMPRESSION: 1. Grade 1 anterolisthesis at L4-5 from facet osteoarthritis. 2. Mild degenerative disc disease from L4 through S1. Electronically signed by: Agatha So MD (08/08/2018 4:14 PM) [facility]
--- NOTE | 2018-08-09 09:00 | RAD ---
DATE: 08/09/2018. EXAM: DIGITAL SCREEN BILAT W/CAD. HISTORY: Routine mammographic screening. COMPARISON: 04/20/2016. This study was interpreted with the benefit of Computerized Aided Detection (CAD). FINDINGS: Breast Density: FATTY The breast parenchyma is primarily fatty replaced. Breast parenchyma level density A.. There are no suspicious masses, microcalcifications or architectural distortion. Small circumscribed nodules bilaterally are stable and benign. BI-RADS CATEGORY: 2 BENIGN FINDING(S). RECOMMENDED FOLLOW-UP: 12M 12 MONTH FOLLOW-UP. PQRS compliance statement: Patient information was entered into a reminder system with a target due date 08/10/2019 for the next mammogram. Mammography is a sensitive method for finding small breast cancers, but it does not detect them all and is not a substitute for careful clinical examination. A negative mammogram does not negate a clinically suspicious finding and should not result in delay in biopsying a clinically suspicious abnormality. "Our facility is accredited by the [employer] Mammography Program."
== END | disposition home or self-care (01) ==
LOC: MAMMO 10:25
PROVIDERS: ATTEND Family Medicine
DX: Z12.31 Encounter for screening mammogram for malignant neoplasm of breast (principal); N63.10 Unspecified lump in the right breast, unspecified quadrant; N63.20 Unspecified lump in the left breast, unspecified quadrant; M43.16 Spondylolisthesis, lumbar region; M12.88 Other specific arthropathies, not elsewhere classified, other specified site; M51.37 Other intervertebral disc degeneration, lumbosacral region
CPT/HCPCS: 72100; 77067

== ENCOUNTER → 2018-08-12 | Outpatient (CLI) | payer OTHER ==
--- NOTE | 2018-08-12 13:55 | RAD ---
MRI of the lumbar spine without contrast 08/12/2018 CLINICAL HISTORY: Low back pain which radiates down the right leg. TECHNIQUE: Unenhanced T1-weighted and T2-weighted sagittal and axial and inversion recovery sagittal images of the lumbar spine were obtained. FINDINGS: Comparison study is dated 08/08/2018. Images from the study are degraded by patient motion. Very mild S-shaped curvature of the thoracolumbar spine is seen. Mild anterolisthesis of L4 in relation to L5 is noted. Degenerative signal changes are seen involving all of the disks of the lumbar spine. Degenerative signal changes are seen within the marrow surrounding these discs. Loss of height of the L5-S1 disc is noted. The conus medullaris is normal morphology, position, and signal characteristics. At the L1-2, L2-3 and L3-4 disc spaces there are minimal to mild generalized disc bulges. Degenerative changes are seen involving the facet joints bilaterally. These findings do not result in significant central spinal canal or neural foraminal stenosis. At the L4-5 disc space there is a mild to moderate generalized disc bulge. This is eccentric to the left. Degenerative changes are seen involving the facet joints bilaterally. There is mild ligamentum flavum hypertrophy bilaterally. There is prominence of the posterior epidural fat. These findings when combined result in mild central spinal canal stenosis. Mild left neural foraminal stenosis is seen. The right neural foramen is patent. At the L5-S1 disc space there is a mild generalized disc bulge. Degenerative changes are seen involving the facet joints, right greater than left. These findings do not result in significant central spinal canal stenosis. Mild to moderate right neural foraminal stenosis is seen. The left neural foramen is patent. IMPRESSION: The changes of degenerative disc disease are seen involving the lumbar spine. These findings result in mild central spinal canal stenosis at L4-5. Mild left neural foraminal stenosis is seen at L4-5. Mild to moderate right neural foraminal stenosis is seen at L5-S1. Electronically signed by: Lew Perry MD (08/12/2018 1:52 PM) [id number]
== END | disposition home or self-care (01) ==
LOC: MRI 10:50
PROVIDERS: ATTEND Family Medicine
DX: M51.36 Other intervertebral disc degeneration, lumbar region (principal); M48.061 Spinal stenosis, lumbar region without neurogenic claudication; M53.86 Other specified dorsopathies, lumbar region
CPT/HCPCS: 72148